=== PATIENT | female | born 1990 | race Caucasian/White ===

== ENCOUNTER 2017-12-11 17:04 | Emergency (ER) | payer BC ==
[2017-12-12] MEDS ORDERED: AZITHROMYCIN250 MG1 PO (06:07)
== END 2017-12-11 17:12 | disposition left against medical advice (07) ==
LOC: EME 17:04
DX: R05 Cough (principal); Z53.21 Procedure and treatment not carried out due to patient leaving prior to being seen by health care provider

== ENCOUNTER 2017-12-12 05:24 | Emergency (ER) | payer SELFPAY ==
[~2017-12-12] VITALS: Ht 162.6 cm; Wt 65.4 kg
[2017-12-12] MEDS ORDERED: AZITHROMYCIN250 MG1 PO (06:07)
[2017-12-12 06:24] VITALS: BP 110/78
== END 2017-12-12 06:24 | disposition home or self-care (01) ==
LOC: EME 05:24
DX: J45.901 Unspecified asthma with (acute) exacerbation (principal); F32.9 Major depressive disorder, single episode, unspecified; Z72.0 Tobacco use; Z88.0 Allergy status to penicillin
CPT/HCPCS: 71046; 94640